=== PATIENT | female | born 1995 | race Caucasian/White ===

== ENCOUNTER 2019-10-04 06:10 | Day surgery (SDC) | payer MEDICAID ==
[~2019-10-04] VITALS: Ht 157.5 cm; Wt 74.4 kg
[2019-10-04] VITALS (11 sets, daily range): BP systolic 115–143; BP diastolic 70–88
[~2019-10-04 06:10] MED LIST: LACTATED RINGERS 1,000 ML ONE
[2019-10-04] MEDS ORDERED: LACTATED RINGERS 1,000 ML ONE (06:35)
[2019-10-04] MEDS ORDERED: DECADRON ONE (06:36)
[2019-10-04] MEDS ORDERED: LIDOCAINE 2% VIAL ONE (06:36)
[2019-10-04] MEDS ORDERED: SUBLIMAZE ONE ×2 (06:36→10:09)
[2019-10-04] MEDS ORDERED: TORADOL ONE (06:36)
[2019-10-04] MEDS ORDERED: ZOFRAN 4 MG/2 ML VIAL ONE ×2 (06:36→10:09)
[2019-10-04] MEDS ORDERED: DIPRIVAN IV ONE (06:36)
[2019-10-04] MEDS ORDERED: VERSED ONE (06:37)
[2019-10-04 06:43] LABS: BASOPHIL % 0.4 % (0.0-0.2); EOSINOPHIL # 0.1 10^3/uL (0.0-0.2); EOSINOPHIL % 0.7 % (0.0-5.0); LYMPHOCYTES # 2.8 10^3/uL (1.0-4.8); LYMPHOCYTES % 32.3 % (24.0-44.0); MEAN CORP HGB 28.9 pg (26-34); MONOCYTES # 0.7 10^3/uL (0.3-0.8); MONOCYTES % 7.9 % (5.0-12.0); NEUTROPHILS % 58.6 % (41.0-85.0); RED CELL DISTRIBUTION WIDTH 12.9 % (11.5-14.5)
[2019-10-04] MEDS: LACTATED RINGERS 1,000 ML IV SCH ×2 (06:45→10:15)
[2019-10-04] MEDS ORDERED: SODIUM CHLORIDE IR ONE (07:05)
[2019-10-04] MEDS ORDERED: METHERGINE ONE (08:59)
--- NOTE | 2019-10-04 09:55 | OPH ---
DATE OF SURGERY: 10/04/2019 PREOPERATIVE DIAGNOSIS: Missed . POSTOPERATIVE DIAGNOSIS: Missed . PROCEDURE: Suction dilation and curettage. SURGEON: Sabine Chavez DO. DYE TUB TENDER: Mary Ellen. ANESTHESIA: General. SPECIMENS: Products of conception. URINE: Straight cath before. ESTIMATED BLOOD LOSS: 1000 mL. FINDINGS: Friable placental tissue, internal cervical laceration that occurred during placement of the curettage with 2 cervical sutures placed for hemostasis. PROCEDURE IN DETAIL: The patient was brought to the operating room where anesthesia was found to be adequate. She was then prepped and draped in normal sterile fashion and placed in the supine lithotomy position. Timeout was performed. We then proceeded to place a weighted speculum in the vaginal vault. The anterior lip of the cervix was grasped with a single tooth tenaculum. The cervix was gently dilated to accommodate first the #7 curved curettage. As inserting the curettage, there was a slight bump and a mass on the left portion of the uterus entering into the cavity. I did not feel that the 7 curettage was removing enough tissue. Therefore, I dilated the cervical os to accommodate the #10 curettage. Once #10 curettage was placed, copious amounts of products of conception were removed. This proved to be a more adequate. Upon removing the curette, the cervix was bleeding internally at the 10-11 o'clock position. Every time I removed the curettage, bleeding was noted. In between removal and looking at the specimen, the area was grasped with the ring forceps, which caused hemostasis. During the procedure, the suction container was full. Therefore, we had to remove the full of specimen. Therefore, the suction container had to be emptied. During this time, hemostasis was noted with the ring forceps. On the internal lip of the cervix, the placenta tissue was inspected. It was noted to be a fairly large amount and friable. Once the container was changed, I then turned our attention back to the procedure where the gentle sharp curettage was done and noted products in the right fundal region. Therefore, the suction curette was run through several more times with the 7 and the 10. I did another gentle curettage and noted a slight cry and only blood clots returned and no products of conception. Therefore, I deemed this portion of the procedure to be complete, but during this process, the uterus was slightly boggy; therefore, I chose to give Methergine IM and asked for Cytotec to be placed on the table for a postop placement. The uterus was massaged and started to become firm. Once this was noted, I did a last pass with suction and minimal bleeding was obtained. So, then I placed an Allis clamp at the site of bleeding and then tied 2 [id number] sutures at the area of bleeding on the anterior lip of the cervix. Hemostasis was noted. We paused for a moment to allow time for this to see if more bleeding would occur. Bleeding did not restart and therefore, all instruments were removed from the vaginal vault. I then placed 800 mcg of Cytotec rectally. The patient tolerated the procedure well. She was taken to the recovery room in stable condition. Now, the patient will be sent home with Methergine p.o. DISPOSITION: The patient is stable to PACU. Sabine Chavez DO DR: PHUC/elizabeth JOB# [id number]
[2019-10-04] MEDS ORDERED: SUBLIMAZE IV PRN (10:00)
[2019-10-04] MEDS ORDERED: LACTATED RINGERS 2,000 ML ONE (10:12)
[2019-10-04] MEDS ORDERED: ZOFRAN 4 MG/2 ML VIAL IV ONE (10:30)
[2019-10-04] MEDS ORDERED: [UNRECOGNIZED DRUG - CODE] PO (11:13)
== END 2019-10-04 11:29 | disposition home or self-care (01) ==
LOC: SDC 06:10
PROVIDERS: ATTEND Obstetrics & Gynecology
DX: O02.1 Missed abortion (principal); Z3A.08 8 weeks gestation of pregnancy
CPT/HCPCS: 36415; 59820; 85025; 86900; 88305; A4217; J1100; J1885; J2001; J2210; J2250; J2405 ×2; J3010 ×2; J3490; J7120 ×3

== ENCOUNTER → 2020-05-20 | Outpatient (CLI) | payer MEDICAID ==
[~2020-05-20] MED LIST changes: -LACTATED RINGERS 1,000 ML ONE; +[UNRECOGNIZED DRUG - CODE] PO
== END | disposition home or self-care (01) ==
LOC: LAB 16:56
PROVIDERS: ATTEND Obstetrics & Gynecology
DX: Z34.02 Encounter for supervision of normal first pregnancy, second trimester (principal)
CPT/HCPCS: 36415; 82105

== ENCOUNTER → 2020-06-16 | Outpatient (CLI) | payer MEDICAID ==
--- NOTE | 2020-06-16 15:17 | DIREP ---
PROCEDURE:US OB 2 3TRI DETAILED TRANSABD COMPARISON:None. INDICATIONS:SECOND TRIMESTER TECHNIQUE:Transabdominal sonography of the gravid uterus was performed. FINDINGS: NUMBER: Single. POSITION: Breech. AMNIOTIC FLUID VOLUME: LVP: 4.4 cm, normal is 2-8 cm. PLACENTAL LOCATION: Posterior. Low-lying. No previa. There is a focal myometrial contraction at the developing lower uterine segment on the initial images of the cervix. CERVICAL LENGTH: Unremarkable transabdominal assessment. HEART RATE: 142 bpm BIPARIETAL DIAMETER: 4.8 cm, (20 weeks, 3 days),52.4 percentile. HEAD CIRCUMFERENCE: 18.2 cm,(20 weeks, 4 days),50 percentile. ABD CIRCUMFERENCE: 17.4 cm,(22 weeks, 2 days),93.2 percentile. FEMUR LENGTH:3.5 cm, 21 weeks, 0 days), 64.1 percentile. EFW: 432.2 g,(95 percentile). ANATOMY: CEREBELLUM: 2.0 cm NUCHAL FOLD: 4.7 mm CISTERNA MAGNA: 5.0 mm LATERAL VENTRICLES: 5.8 mm CHOROID PLEXUS: Normal. MIDLINE FALX: Normal. CAVUM SEPTUM PELLUCIDUM: Normal. 4 CHAMBER VIEW OF HEART:Abnormal. Possible small VSD. UPPER LIP: Normal. STOMACH: Normal. KIDNEYS: Normal. BLADDER: Normal. CORD INSERTION: Normal. CORD VESSEL NUMBER: Normal. SPINE: Normal. EXTREMITIES: Present. OTHER: Anatomy seen suboptimally above is related to patient habitus and/or the position of the fetus. ULTRASOUND AGE: 21 weeks, 1 days ULTRASOUND RJ: October 26, 2020 CLINICAL AGE: 20 weeks, 3 days. CLINICAL RJ: October 31, 2020 CONCLUSION: 1. Single live intrauterine . 2. Possible small VSD on four-chamber views of the heart. Consider echocardiography. Otherwise, no abnormality demonstrated. 3. Posterior placenta, low lying. No previa. Recommend follow-up in the 3rd trimester to ensure resolution. Dictated by: JEREMIAS Physician on 06/16/2020 at 11:37 AM bs
== END | disposition home or self-care (01) ==
LOC: RAD 09:58
PROVIDERS: ATTEND Obstetrics & Gynecology
DX: O32.1XX0 Maternal care for breech presentation, not applicable or unspecified (principal); Z3A.21 21 weeks gestation of pregnancy
CPT/HCPCS: 76805

== ENCOUNTER → 2020-09-07 | Outpatient (CLI) | payer MEDICAID ==
--- NOTE | 2020-09-07 16:16 | DIREP ---
PROCEDURE:US BIOPHYSICAL PROFILE W/O NON STRESS COMPARISON:[facility], US, US OB 2 3TRI DETAILED TRANSABD, 06/16/2020, 10:15 AM. INDICATIONS:LOW LYING PLACENTA FINDINGS: Breathing:Normal, 2. Movement:Normal, 2. Tone:Normal, 2. Fluid:Normal, 2. Total: 8 , 8 Number:Restrepo. Position:Cephalic. Placenta:Posterior. No previa. No longer low-lying. Amniotic Fluid Volume:Largest vertical pocket: 5.8 cm, (normal is 2-8 cm). Cervix:Normal transabdominal assessment. Transvaginal images were obtained for confirmation that the low-lying placenta resolved. Apposed cervical length incidentally noted to be 3 cm. Heart Rate:145 bpm. Biparietal Diameter:8.0 cm,(32 weeks, 0 days),32.0 percentile. Head Circumference:30.0 cm,(33 weeks, 2 days),36.8 percentile. Abdominal Circumference:29.8 cm,(33 weeks, 6 days),87.7 percentile. Femur Length:6.3 cm,(32 weeks, 4 days),46.4 percentile. Estimated Weight:2149 g,(70.1 percentile). Ultrasound GA: 33 weeks, 0 days Ultrasound RJ: October 26, 2020 Clinical GA: 32 weeks, 2 days Clinical RJ: October 31, 2020 anatomic survey was not performed. No abnormalities are seen. CONCLUSION: 1. Single live intrauterine with appropriate interval growth. 2. BPP 05/16. Dictated by: JREEMIAS Physician on 09/07/2020 at 03:40 PM ac
== END | disposition home or self-care (01) ==
LOC: RAD 13:04
PROVIDERS: ATTEND Obstetrics & Gynecology
DX: O44.40 Low lying placenta NOS or without hemorrhage, unspecified trimester (principal); Z3A.33 33 weeks gestation of pregnancy
CPT/HCPCS: 76816; 76819

== ENCOUNTER 2020-10-18 14:45 | Observation (INO) | payer MEDICAID ==
[~2020-10-18] VITALS: Ht 157.5 cm; Wt 95.3 kg
[2020-10-18 15:59] LABS: APPEARANCE,URINE SLIGHTLY CLOUDY (CLEAR); UA COLOR YELLOW (YELLOW)
[2020-10-18 16:00] LABS: BILIRUBIN,URINE NEGATIVE (NEGATIVE); UROBILINOGEN,URINE NEGATIVE (NEGATIVE)
[2020-10-18 16:35] VITALS: BP 111/73
== END 2020-10-18 17:00 | disposition home or self-care (01) ==
LOC: ATP 14:45
PROVIDERS: ADMIT Obstetrics & Gynecology; ATTEND Obstetrics & Gynecology
DX: O26.893 Other specified pregnancy related conditions, third trimester (principal); R10.31 Right lower quadrant pain; O12.03 Gestational edema, third trimester; Z3A.38 38 weeks gestation of pregnancy; Z79.899 Other long term (current) drug therapy
CPT/HCPCS: 59025; 80307; 81000; 87086; G0378 ×2

== ENCOUNTER 2020-10-30 21:51 | Observation (INO) | payer MEDICAID ==
[~2020-10-30] VITALS: Ht 157.5 cm; Wt 95.3 kg
[2020-10-30 23:42] LABS: APPEARANCE,URINE HAZY (CLEAR); BILIRUBIN,URINE NEGATIVE (NEGATIVE); UA COLOR YELLOW (YELLOW); UROBILINOGEN,URINE 0.2 (NEGATIVE)
[2020-10-31] MEDS ORDERED: LACTATED RINGERS 2,000 ML ONE (00:05)
[2020-10-31] MEDS ORDERED: LACTATED RINGERS 1,000 ML IV ONE (00:30)
[2020-10-31] MEDS ORDERED: PHENERGAN IV ONE (00:30)
[2020-10-31] MEDS ORDERED: DEMEROL IV ONE (00:30)
[2020-10-31] MEDS ORDERED: DEMEROL ONE (00:50)
[2020-10-31] MEDS ORDERED: PHENERGAN ONE (00:53)
[2020-10-31] MEDS ORDERED: NS 25ML 25 ML IV ONE (00:54)
[2020-10-31] MEDS ORDERED: PNV1TABL82 PO (08:22)
[2020-11-01] MEDS ORDERED: IBUP-1131 PO (11:48)
== END 2020-10-31 04:30 | disposition home or self-care (01) ==
LOC: ATP 22:50
PROVIDERS: ADMIT Obstetrics & Gynecology; ATTEND Obstetrics & Gynecology
DX: O62.9 Abnormality of forces of labor, unspecified (principal); O26.893 Other specified pregnancy related conditions, third trimester; R11.0 Nausea; O34.63 Maternal care for abnormality of vagina, third trimester; N89.8 Other specified noninflammatory disorders of vagina; O12.03 Gestational edema, third trimester; Z3A.40 40 weeks gestation of pregnancy; Z79.899 Other long term (current) drug therapy
CPT/HCPCS: 81000; 87086; 96374; 96375; G0378 ×5; J2175; J2550; J7120 ×2

== ENCOUNTER 2020-10-31 07:31 | Inpatient (IN) | payer MEDICAID ==
[~2020-10-31] VITALS: Ht 157.5 cm; Wt 94.3 kg
[2020-10-31] MEDS: ANCEF 1 GM in NS 100ML 100 ML IV SCH (00:45)
[2020-10-31] MEDS ORDERED: PNV1TABL82 PO (08:22)
[2020-10-31] MEDS ORDERED: WATER ONE ×2 (08:34→20:00)
[2020-10-31] MEDS ORDERED: LACTATED RINGERS 2,000 ML ONE (08:34)
[2020-10-31] MEDS ORDERED: OXYTOCIN 30 UNIT/NS 500 ML 500 ML IV ONE (08:35)
[2020-10-31] MEDS ORDERED: LIDOCAINE 1% VIAL ONE ×2 (08:36→13:59)
[2020-10-31] MEDS ORDERED: DEMEROL IV PRN (09:00)
[2020-10-31] MEDS ORDERED: ZOFRAN IV PRN (09:00)
[2020-10-31] MEDS ORDERED: PHENERGAN IV PRN (09:00)
[2020-10-31] MEDS ORDERED: LIDOCAINE 1% VIAL MC PRN (09:00)
[2020-10-31] MEDS ORDERED: OXYTOCIN 30 UNIT/NS 500 ML 500 ML IV SCH ×2 (09:00→23:30)
[2020-10-31] MEDS: LACTATED RINGERS 1,000 ML IV SCH ×4 (09:03→21:03)
[2020-10-31 11:01] LABS: BASOPHIL % 0.1 % (0.0-0.2); EOSINOPHIL % 0.1 % (0.0-5.0); LYMPHOCYTES % 7.6 % (24.0-44.0); MEAN CORP HGB 29.8 pg (26-34); MONOCYTES # 1.5 10^3/uL (0.3-0.8); MONOCYTES % 9.4 % (5.0-12.0); NEUTROPHILS % 82.5 % (41.0-85.0); PLATELET COUNT 103 10^3/uL (150-400); RED CELL DISTRIBUTION WIDTH 13.3 % (11.5-14.5)
[2020-10-31] MEDS ORDERED: NS 25ML 25 ML IV ONE (11:22)
[2020-10-31] MEDS ORDERED: PHENERGAN ONE (11:22)
[2020-10-31] MEDS ORDERED: DEMEROL ONE (11:22)
[2020-10-31] MEDS ORDERED: NAROPIN ONE (13:39)
--- NOTE | 2020-10-31 14:05 | NUR ---
Anesthesia consulted to pt bedside for request of labor epidural. Pt interview, assessment, and consent obtained prior to procedure- witnessed by assigned Obstetric RN. Pt verbalized understanding. Pt positioned self in sitting position, with protective head covering. Skin prepped with chlorohexidine swabs and sterile gloves - allowed to dry prior to placement of sterile drape. 1% lidocaine PF used for skin at L2-L3 interspace. Tuohy 17 gauge used with NS PF for MADAN. Pt able to maintain position appropriately, no distress at this time. MADAN at 8 cm, 25 gauge spinal needle used for CSE technique- free flow , heme negative CSF observed; 1 ml of PF 0.25% bupivicaine given via spinal needle. Spinal needle removed and catheter threads with ease, Tuohy removed without complication or catheter displacement. Catheter marking of 13 at pt skin. sterile clear dressing and sterile sponge used to anchor catheter. catheter secured to skin , with Medipore tape, routed towards Left shoulder. Pt repositioned self supine. Vital signs and FHT consistent with baseline , no acute distress noted. Pt educated on use of ROBOTICS TECHNICIAN button, lock out feature, and sensory block. Pt verbalizes understanding. Dermatone block level at T10. Thank you, Dr. Zuhair Chopra, DNP, PHARMACY TECHNICIAN PER DIEM
--- NOTE | 2020-10-31 15:53 | PRM.PN ---
Progress Note Subjective Date: Oct 31, 2020 Time: 15:48 Physician Notes: Pt comfortable with epidural. She and sleeping. Awoke pt and she complained of being cold and shivering. I got patients warm blankets. FHT-Cat 2, TOCO every 1-3 min. SVE per nursing 7 cm -Continue expectant management and will start pushing when pt is complete. Objective Review IO, Exams,& Results Laboratory Tests Test 10/31/20 08:10 10/31/20 09:00 Amniotic Fld Alpha Fetoprotein RUPTURE White Blood Count 15.7 10^3/uL Red Blood Count 3.93 10^6/uL Hemoglobin 11.7 g/dL Hematocrit 34.0 % Mean Corpuscular Volume 86.5 fL Mean Corpuscular Hemoglobin 29.8 pg Mean Corpuscular Hemoglobin Concent 34.4 g/dL Red Cell Distribution Width 13.3 % Platelet Count 103 10^3/uL Mean Platelet Volume 11.3 fL Neutrophils (%) (Auto) 82.5 % Lymphocytes (%) (Auto) 7.6 % Monocytes (%) (Auto) 9.4 % Neutrophils # (Auto) 13.0 10^3/uL Lymphocytes # (Auto) 1.20 10^3/uL1 Monocytes # (Auto) 1.5 10^3/uL Absolute Immature Granulocyte (auto 0.04 10^3 u/L Absolute Eosinophils (auto) 0.0 10^3/uL Immature Granulocytes % 0.30 % Eosinophils % 0.1 % Basophils % 0.1 % Basophils # 0.0 10^3/uL HIV-1 Antibody NON-REACTIVE HIV-2 Antibody NON-REACTIVE Current Medications Medications (Trade) Dose Ordered Sig/Franky PRN Reason Start Time Stop Time Status Last Admin Lidocaine HCl (Lidocaine 1% Vial) 20 mg PRN PRN PAIN 4 - 6 10/31/20 09:00 11/01/20 08:59 Meperidine HCl (Demerol) 50 mg Q4H PRN PAIN 7 - 10 10/31/20 09:00 11/30/20 08:59 10/31/20 11:25 Ondansetron HCl (Zofran) 4 mg Q6 PRN INDIGESTION 10/31/20 09:00 11/30/20 08:59 10/31/20 09:18 Promethazine HCl (Phenergan) 25 mg Q4H PRN INDIGESTION 10/31/20 09:00 11/30/20 08:59 10/31/20 11:24 Orders - LOUISA MARION DO Admit Orders (10/31/20 08:04) External Monitoring >24w (10/31/20 08:05) Call Md/Non-Reasurring Fht Pat (10/31/20 08:05) Call Md/Abnorm Vag Bld (10/31/20 08:05) Call Md For Imminent Delivery (10/31/20 08:05) Npo Except Ice Chips/Popsicles (10/31/20 08:36) Vs Q15min While In Labor (10/31/20 08:36) Temp Q1hr If Ruptured Membrane (10/31/20 08:36) Hbsag (Surf Antigen) (10/31/20 08:36) Ringer's Solution,Lactated (Lactated Rin (10/31/20 09:00) Lidocaine Hcl (Lidocaine 1% Vial) (10/31/20 09:00) Continuous Monitoring (10/31/20 08:36) RPR (10/31/20 08:36) Meperidine Hcl/Pf (Demerol) (10/31/20 09:00) Ondansetron Hcl/Pf (Zofran) (10/31/20 09:00) Promethazine Hcl (Phenergan) (10/31/20 09:00) Oxytocin/0.9 % Sodium Chloride (Oxytocin (10/31/20 09:00) LOUISA MARION DO Oct 31, 2020 15:53
--- NOTE | 2020-10-31 15:59 | PCM.HP ---
OB-Chief Complaint and HPI Date/Diagnosis Date: Oct 31, 2020 Time: 15:53 Admit Dx: (1) Spontaneous rupture of amniotic membranes SNOMED: 264507243 (2) 40 weeks gestation of ICD Codes: Z3A.40 - 40 weeks gestation of SNOMED: 77825366 (3) Morbid obesity due to excess calories ICD Codes: E66.01 - Morbid (severe) obesity due to excess calories SNOMED: 146856555, 746691864 (4) Excessive weight gain during , antepartum ICD Codes: O26.00 - Excessive weight gain in , unspecified trimester SNOMED: 079991855 (5) Uterine contractions SNOMED: 632519464 Chief Complaint/History(PI) : 2 Para: 1 EDC: Oct 31, 2020 Reason for admission: rupture of membranes Past Family/Social History Patient History: No known health problems 32 MOTHER G8 BROTHER G8 SISTER Unknown 33 FATHER No Family History of: Alzheimer's disease Asthma Cerebrovascular disorder Chronic obstructive pulmonary disease Congestive heart failure Diabetes insipidus Diabetes mellitus Hypertension Parkinson's disease Blood Type: A+ Rubella: immune RPR/VDRL: Negative GBS Status: Negative HBsAG: Negative Provider Note: Pt is a 25 y/o @ 40.0 weeks who presented to L&D with complaints of SROM. Pt was sent home earlier in the morning as she was present in triage to r/o labor. She was 2 cm and did not progress. Once patient returned to home her water broke around 6:30 am. clear fluid. Pt returned to hospital and SROM was confirmed. She was 3 cm upon admission, Pt is complicated with excessive weight gain and obesity. A/ 25 y/o @ 40.0 SROM Excessive weight gain GBS neg Leukocytosis P/ Expectant management Pain meds prn OB EXAM Physical Exam Vital Signs: Weight: 208 LABS Laboratory Tests Test 10/31/20 09:00 HIV-1 Antibody NON-REACTIVE (NONREACTIVE) HIV-2 Antibody NON-REACTIVE (NONREACTIVE) LOUISA MARION DO Oct 31, 2020 15:59
[2020-10-31] MEDS ORDERED: LACTATED RINGERS 1,000 ML ONE ×2 (16:05→20:17)
[2020-10-31] MEDS ORDERED: TYLENOL PO ONE (18:19)
[2020-10-31] MEDS ORDERED: AMPICILLIN SODIUM ONE ×2 (18:20→19:21)
[2020-10-31] MEDS ORDERED: NS 100ML 100 ML IV ONE ×2 (18:20→19:20)
[2020-10-31] MEDS ORDERED: TYLENOL PO STA (18:22)
[2020-10-31] MEDS ORDERED: ANCEF 2 GM/D5W 50ML IV SCH (18:30)
[2020-10-31] MEDS ORDERED: ANCEF 2 GM/D5W 50ML IV ONE (19:00)
[2020-10-31] MEDS ORDERED: NS IV SCH (19:30)
[2020-10-31] MEDS ORDERED: GENTAMICIN SULFATE IV SCH (19:30)
[2020-10-31] MEDS: AMPICILLIN IV SCH (19:45)
[2020-10-31] MEDS ORDERED: MOTRIN ONE (20:16)
[2020-10-31] MEDS ORDERED: MOTRIN PO ONE (20:30)
--- NOTE | 2020-10-31 23:24 | PCM.OBDEL1 ---
OPERATIVE REPORT OPERATIVE REPORT 40.0- over an intact perineum with epidural anesthesia. Viable female infant Apgars 8/9. Weight 8 pounds 15 ounces. was delivered in OA position. Infant was delivered and handed to mother. Upon delivery thick meconium was noted. Cry was noted after stimulation on mother's chest.Delayed cord clamp and cut. First-degree vaginal laceration repaired with 3-0 chromic and bilateral labial lacerations repaired with 4-0 Monocryl. Hemostasis noted. Placenta was spontaneously expelled. Cervix was inspected and noted to be intact. Bladder emptied with red rubber catheter and approximately 25 cc emptied. QBL equals 500 mL. Mother and stable. Name = Loretta Mother had an intrapartum infection. She was treated with ampicillin and gentamicin. LOUISA MARION DO Oct 31, 2020 23:24
[2020-10-31] MEDS ORDERED: MYLANTA PO PRN (23:30)
[2020-10-31] MEDS ORDERED: TYLENOL PO PRN (23:30)
[2020-10-31] MEDS ORDERED: NORCO 5MG PO PRN ×2 (23:30)
[2020-10-31] MEDS ORDERED: TYLENOL #3 PO PRN (23:30)
[2020-10-31] MEDS ORDERED: DERMOPLAST SPRAY TP PRN (23:30)
[2020-10-31] MEDS ORDERED: LANOLIN HYDROUS TP PRN (23:30)
[2020-10-31] MEDS ORDERED: TUCKS TP PRN (23:30)
[2020-11-01] MEDS ORDERED: NS 100ML 200 ML IV ONE (00:37)
[2020-11-01] MEDS ORDERED: ANCEF ONE ×3 (00:37→12:47)
[2020-11-01] MEDS ORDERED: AMPICILLIN SODIUM ONE ×2 (00:38→08:45)
[2020-11-01] MEDS: ANCEF 1 GM in NS 100ML 100 ML IV SCH ×5 (00:45→18:14)
[2020-11-01] MEDS ORDERED: TUCKS ONE (00:48)
[2020-11-01] MEDS ORDERED: DERMOPLAST SPRAY TP ONE (00:48)
[2020-11-01] MEDS: AMPICILLIN IV SCH ×2 (02:05→08:56)
[2020-11-01] MEDS ORDERED: GLUCOSE GEL PO ONE (02:37)
[2020-11-01] MEDS ORDERED: NS 100ML 100 ML IV ONE ×3 (06:17→12:47)
[2020-11-01 06:43] LABS: BASOPHIL % 0.2 % (0.0-0.2); LYMPHOCYTES # 1.41 10^3/uL1 (1.0-4.8); LYMPHOCYTES % 7.1 % (24.0-44.0); MEAN CORP HGB 31.1 pg (26-34); MONOCYTES # 1.8 10^3/uL (0.3-0.8); MONOCYTES % 9.2 % (5.0-12.0); NEUTROPHIL # 16.4 10^3/uL (1.8-7.7); NEUTROPHILS % 82.8 % (41.0-85.0); PLATELET COUNT 119 10^3/uL (150-400); RED CELL DISTRIBUTION WIDTH 13.7 % (11.5-14.5)
[2020-11-01] MEDS ORDERED: MOTRIN ONE (08:58)
[2020-11-01] MEDS: MOTRIN PO PRN (08:59)
--- NOTE | 2020-11-01 10:28 | PRM.PN ---
Progress Note Subjective Date: Nov 01, 2020 Time: 10:25 Physician Notes: PPD # 1 Patient is doing well today. Sitting up in bed. in room. Complains of appropriate perineal pain. Pain well controlled with pericare and oral pain meds. Ambulating and urinating without difficulty. Tolerated a regular diet. Denies current complaints. Discussed that we will continue to do antibiotics for a minimum of 24 hours p ostpartum. Antibiotics will be continued if patient becomes symptomatic or febrile. Otherwise, plan will be to stop antibiotics and plan for D/C to home tomorrow. VS-98.1,77,96%,20,93/55 ABD-Obese, Firm fundus, appropriate tenderness. EX-Trace edema, Full ROM, NT, Neg Katarina's A/ 25 y/o @ 40.0 s/p Intrapartum infection Excessive weight gain GBS neg Leukocytosis Bottle feeding P/ Continue PP care Increase ambulation Continue abx for a minimum 24 hrs post delivery, pending no additional temps AM. CBC Plan for d/c to home tomorrow Objective Review IO, Exams,& Results Laboratory Tests Test 10/31/20 08:10 10/31/20 09:00 11/01/20 05:48 Amniotic Fld Alpha Fetoprotein RUPTURE White Blood Count 15.7 10^3/uL 19.8 10^3/uL Red Blood Count 3.93 10^6/uL 3.02 10^6/uL Hemoglobin 11.7 g/dL 9.4 g/dL Hematocrit 34.0 % 26.3 % Mean Corpuscular Volume 86.5 fL 87.1 fL Mean Corpuscular Hemoglobin 29.8 pg 31.1 pg Mean Corpuscular Hemoglobin Concent 34.4 g/dL 35.7 g/dL Red Cell Distribution Width 13.3 % 13.7 % Platelet Count 103 10^3/uL 119 10^3/uL Mean Platelet Volume 11.3 fL 11.2 fL Neutrophils (%) (Auto) 82.5 % 82.8 % Lymphocytes (%) (Auto) 7.6 % 7.1 % Monocytes (%) (Auto) 9.4 % 9.2 % Neutrophils # (Auto) 13.0 10^3/uL 16.4 10^3/uL Lymphocytes # (Auto) 1.20 10^3/uL1 1.41 10^3/uL1 Monocytes # (Auto) 1.5 10^3/uL 1.8 10^3/uL Absolute Immature Granulocyte (auto 0.04 10^3 u/L 0.13 10^3 u/L Absolute Eosinophils (auto) 0.0 10^3/uL 0.0 10^3/uL Immature Granulocytes % 0.30 % 0.70 % Eosinophils % 0.1 % 0.0 % Basophils % 0.1 % 0.2 % Basophils # 0.0 10^3/uL 0.0 10^3/uL Rapid Plasma Reagin NONREACTIVE HIV-1 Antibody NON-REACTIVE HIV-2 Antibody NON-REACTIVE Current Medications Medications (Trade) Dose Ordered Sig/Franky PRN Reason Start Time Stop Time Status Last Admin Acetaminophen (Tylenol) 650 mg Q4HR PRN PAIN 1 - 3 10/31/20 23:30 11/30/20 23:29 Acetaminophen/ Codeine Phosphate (Tylenol #3) 1 each Q4H PRN PAIN 4 - 6 10/31/20 23:30 11/30/20 23:29 Acetaminophen/ Hydrocodone Bitart ([place] 5mg) 1 ea Q4HR PRN PAIN 4 - 6 10/31/20 23:30 11/30/20 23:29 Acetaminophen/ Hydrocodone Bitart ([place] 5mg) 2 ea Q4HR PRN PAIN 7 - 10 10/31/20 23:30 11/30/20 23:29 Ampicillin Sodium (Ampicillin) 2 mg Q6 11/01/20 00:00 12/01/20 00:00 11/01/20 08:56 Benzocaine (Dermoplast [place]) To perineum PRN sut... PRN PRN Perineal Pain 10/31/20 23:30 11/30/20 23:29 Cefazolin Sodium 1 gm/Sodium Chloride 100 ml @ 100 mls/hr Q6 10/31/20 19:30 11/30/20 19:29 11/01/20 06:30 Cefazolin Sodium/ Dextrose (Ancef 2 Gm/D5W 50ml) 2 gm OT 10/31/20 18:30 11/30/20 18:29 10/31/20 18:38 Docusate Sodium (Colace) 100 mg HS 11/01/20 21:00 12/01/20 20:59 Gentamicin Sulfate 470 mg/ Sodium Chloride 111.75 ml @ 100 mls/ hr Q24HRS 10/31/20 19:30 11/30/20 19:29 10/31/20 20:30 Ibuprofen (Motrin) 800 mg Q6HR PRN CRAMPING 10/31/20 23:30 11/30/20 23:29 11/01/20 08:59 Lanolin (Lanolin Hydrous) Apply to nipples PRN dry, pain... TID PRN pain/cracking 10/31/20 23:30 11/30/20 23:29 Meperidine HCl (Demerol) 50 mg Q4H PRN PAIN 7 - 10 10/31/20 09:00 11/30/20 08:59 10/31/20 11:25 Ondansetron HCl (Zofran) 4 mg Q6 PRN INDIGESTION 10/31/20 09:00 11/30/20 08:59 10/31/20 09:18 Promethazine HCl (Phenergan) 25 mg Q4H PRN INDIGESTION 10/31/20 09:00 11/30/20 08:59 10/31/20 11:24 Witch Viviane (Tucks) To perineal area ... PRN PRN Hemorrhoids 10/31/20 23:30 11/30/20 23:29 Orders - LOUISA MARION DO Admit Orders (10/31/20 08:04) External Monitoring >24w (10/31/20 08:05) Call Md/Non-Reasurring Fht Pat (10/31/20 08:05) Call Md/Abnorm Vag Bld (10/31/20 08:05) Call Md For Imminent Delivery (10/31/20 08:05) Npo Except Ice Chips/Popsicles (10/31/20 08:36) Vs Q15min While In Labor (10/31/20 08:36) Temp Q1hr If Ruptured Membrane (10/31/20 08:36) Hbsag (Surf Antigen) (10/31/20 08:36) Ringer's Solution,Lactated (Lactated Rin (10/31/20 09:00) Continuous Monitoring (10/31/20 08:36) Meperidine Hcl/Pf (Demerol) (10/31/20 09:00) Ondansetron Hcl/Pf (Zofran) (10/31/20 09:00) Promethazine Hcl (Phenergan) (10/31/20 09:00) Oxytocin/0.9 % Sodium Chloride (Oxytocin (10/31/20 09:00) Cefazolin Sodium/Dextrose,Iso (Ancef 2 G (10/31/20 18:30) Gentamicin Sulfate (Gentamicin Sulfate) (10/31/20 19:30) Ampicillin Sodium (Ampicillin) (11/01/20 00:00) Cefazolin Sodium (Ancef) (10/31/20 19:30) Routine Vital Signs (10/31/20 23:24) Activity Advance As Tolerated (10/31/20:24) Ice Pk To Episiotomy/Tear (10/31/20 23:24) Sitz Bath Prn (10/31/20:24) Docusate Sodium (Colace) (11/01/20 21:00) Lanolin (Lanolin Hydrous) (10/31/20 23:30) Ibuprofen (Motrin) (10/31/20 23:30) Acetaminophen (Tylenol) (10/31/20 23:30) Hydrocodone/Acetaminophen ([place] 5mg) (10/31/20 23:30) Hydrocodone/Acetaminophen ([place] 5mg) (10/31/20 23:30) Mag Hydrox/Aluminum Hyd/Simeth (Mylanta) (10/31/20 23:30) Benzocaine/Lanolin/Aloe Vera (Dermoplast (10/31/20 23:30) Witch Viviane (Tucks) (10/31/20 23:30) Regular Diet (11/01/20 Breakfast) Oxytocin/0.9 % Sodium Chloride (Oxytocin (10/31/20 23:30) Acetaminophen With Codeine (Tylenol #3) (10/31/20 23:30) LOUISA MARION DO Nov 01, 2020 10:28
--- NOTE | 2020-11-01 11:30 | NUR ---
[facility] CHARGE NURSE CHARLOTTE HOLGUIN RECEIVED TELEPHONE ORDER FROM DR VALENCIA TO MECHELLE CASEY DC PER ORDER.
[2020-11-01] MEDS ORDERED: NS IV SCH (11:32)
[2020-11-01] MEDS ORDERED: GENTAMICIN SULFATE IV SCH (11:32)
[2020-11-01] MEDS ORDERED: IBUP-1131 PO (11:48)
[2020-11-01] MEDS ORDERED: COLACE PO ONE (21:18)
[2020-11-01] MEDS: COLACE PO SCH (21:22)
[2020-11-02] MEDS: ANCEF 1 GM in NS 100ML 100 ML IV SCH ×2 (00:06→06:30)
[2020-11-02 05:23] LABS: BASOPHIL % 0.2 % (0.0-0.2); EOSINOPHIL # 0.2 10^3/uL (0.0-0.2); LYMPHOCYTES # 2.44 10^3/uL1 (1.0-4.8); LYMPHOCYTES % 13.8 % (24.0-44.0); MEAN CORP HGB 30.6 pg (26-34); MONOCYTES # 1.3 10^3/uL (0.3-0.8); MONOCYTES % 7.3 % (5.0-12.0); NEUTROPHIL # 13.7 10^3/uL (1.8-7.7); PLATELET COUNT 154 10^3/uL (150-400); RED CELL DISTRIBUTION WIDTH 13.7 % (11.5-14.5)
--- NOTE | 2020-11-02 09:03 | PRM.PN ---
Progress Note Subjective Date: Nov 02, 2020 Time: 08:58 Physician Notes: PPD # 2 Devendra is doing well today. Sitting up in bed. and daughter in room along with nursing staff. States she did well yesterday, just had a little bit of perineal discomfort. Pain is well controlled with Motrin. Ambulating and urinating without difficulty. Moderate lochia. Tolerating regular diet. She is bottle feeding. She has been afebrile since delivery. Questions answered. VS- 96%,78,107/61,98.4 ABD-firm fundus EX-Full ROM, NT A/ 25 y/o @ 40.0 s/p , PPD # 2 Intrapartum infection s/p 48 hr abx Excessive weight gain GBS neg Leukocytosis-improving Bottle feeding Anemia P/ Continue PP care Increase ambulation AM. CBC d/c to home tomorrow Iron & Motrin Rx 2 week office f/u Objective Review IO, Exams,& Results Intake and Output 11/02/20 07:00 Intake Total 373.50 ml Balance 373.50 ml IV Total 373.50 ml Laboratory Tests Test 10/31/20 09:00 11/01/20 05:48 11/02/20 05:04 White Blood Count 15.7 10^3/uL 19.8 10^3/uL 17.7 10^3/uL Red Blood Count 3.93 10^6/uL 3.02 10^6/uL 2.94 10^6/uL Hemoglobin 11.7 g/dL 9.4 g/dL 9.0 g/dL Hematocrit 34.0 % 26.3 % 25.7 % Mean Corpuscular Volume 86.5 fL 87.1 fL 87.4 fL Mean Corpuscular Hemoglobin 29.8 pg 31.1 pg 30.6 pg Mean Corpuscular Hemoglobin Concent 34.4 g/dL 35.7 g/dL 35.0 g/dL Red Cell Distribution Width 13.3 % 13.7 % 13.7 % Platelet Count 103 10^3/uL 119 10^3/uL 154 10^3/uL Mean Platelet Volume 11.3 fL 11.2 fL 10.6 fL Neutrophils (%) (Auto) 82.5 % 82.8 % 77.0 % Lymphocytes (%) (Auto) 7.6 % 7.1 % 13.8 % Monocytes (%) (Auto) 9.4 % 9.2 % 7.3 % Neutrophils # (Auto) 13.0 10^3/uL 16.4 10^3/uL 13.7 10^3/uL Lymphocytes # (Auto) 1.20 10^3/uL1 1.41 10^3/uL1 2.44 10^3/uL1 Monocytes # (Auto) 1.5 10^3/uL 1.8 10^3/uL 1.3 10^3/uL Absolute Immature Granulocyte (auto 0.04 10^3 u/L 0.13 10^3 u/L 0.12 10^3 u/L Absolute Eosinophils (auto) 0.0 10^3/uL 0.0 10^3/uL 0.2 10^3/uL Immature Granulocytes % 0.30 % 0.70 % 0.70 % Eosinophils % 0.1 % 0.0 % 1.0 % Basophils % 0.1 % 0.2 % 0.2 % Basophils # 0.0 10^3/uL 0.0 10^3/uL 0.0 10^3/uL Rapid Plasma Reagin NONREACTIVE HIV-1 Antibody NON-REACTIVE HIV-2 Antibody NON-REACTIVE Current Medications Medications (Trade) Dose Ordered Sig/Franky PRN Reason Start Time Stop Time Status Last Admin Acetaminophen (Tylenol) 650 mg Q4HR PRN PAIN 1 - 3 10/31/20 23:30 11/30/20 23:29 Acetaminophen/ Codeine Phosphate (Tylenol #3) 1 each Q4H PRN PAIN 4 - 6 10/31/20 23:30 11/30/20 23:29 Acetaminophen/ Hydrocodone Bitart ([place] 5mg) 1 ea Q4HR PRN PAIN 4 - 6 10/31/20 23:30 11/30/20 23:29 Acetaminophen/ Hydrocodone Bitart ([place] 5mg) 2 ea Q4HR PRN PAIN 7 - 10 10/31/20 23:30 11/30/20 23:29 Benzocaine (Dermoplast [place]) To perineum PRN sut... PRN PRN Perineal Pain 10/31/20 23:30 11/30/20 23:29 Cefazolin Sodium 1 gm/Sodium Chloride 100 ml @ 100 mls/hr Q6 10/31/20 19:30 11/30/20 19:29 11/02/20 06:30 Cefazolin Sodium/ Dextrose (Ancef 2 Gm/D5W 50ml) 2 gm OT 10/31/20 18:30 11/30/20 18:29 10/31/20 18:38 Docusate Sodium (Colace) 100 mg HS 11/01/20 21:00 12/01/20 20:59 11/01/20 21:22 Gentamicin Sulfate 470 mg/ Sodium Chloride 261.75 ml @ 234.228 mls/hr Q24HRS 11/01/20 11:32 11/30/20 19:29 11/01/20 20:27 Ibuprofen (Motrin) 800 mg Q6HR PRN CRAMPING 10/31/20 23:30 11/30/20 23:29 11/01/20 08:59 Lanolin (Lanolin Hydrous) Apply to nipples PRN dry, pain... TID PRN pain/cracking 10/31/20 23:30 11/30/20 23:29 Meperidine HCl (Demerol) 50 mg Q4H PRN PAIN 7 - 10 10/31/20 09:00 11/30/20 08:59 10/31/20 11:25 Ondansetron HCl (Zofran) 4 mg Q6 PRN INDIGESTION 10/31/20 09:00 11/30/20 08:59 10/31/20 09:18 Promethazine HCl (Phenergan) 25 mg Q4H PRN INDIGESTION 10/31/20 09:00 11/30/20 08:59 10/31/20 11:24 Witch Viviane (Tucks) To perineal area ... PRN PRN Hemorrhoids 10/31/20 23:30 11/30/20 23:29 LOUISA Sifuentes DO Cefazolin Sodium/Dextrose,Iso (Ancef 2 G (10/31/20 18:30) Cefazolin Sodium (Ancef) (10/31/20 19:30) Routine Vital Signs (10/31/20 23:24) Activity Advance As Tolerated (10/31/20 23:24) Ice Pk To Episiotomy/Tear (10/31/20 23:24) Sitz Bath Prn (10/31/20 23:24) Docusate Sodium (Colace) (11/01/20 21:00) Lanolin (Lanolin Hydrous) (10/31/20 23:30) Ibuprofen (Motrin) (10/31/20 23:30) Acetaminophen (Tylenol) (10/31/20 23:30) Hydrocodone/Acetaminophen ([place] 5mg) (10/31/20 23:30) Hydrocodone/Acetaminophen ([place] 5mg) (10/31/20 23:30) Mag Hydrox/Aluminum Hyd/Simeth (Mylanta) (10/31/20 23:30) Benzocaine/Lanolin/Aloe Vera (Dermoplast (10/31/20 23:30) Witch Viviane (Tucks) (10/31/20 23:30) Regular Diet (11/01/20 Breakfast) Oxytocin/0.9 % Sodium Chloride (Oxytocin (10/31/20 23:30) Acetaminophen With Codeine (Tylenol #3) (10/31/20 23:30) Gentamicin Sulfate (Gentamicin Sulfate) (11/01/20 11:32) LOUISA MARION DO Nov 02, 2020 09:03
--- NOTE | 2020-11-02 09:46 | PRM.DC ---
DISCHARGE SUMMARY Y ADMIT DATE: 10/31/2020 DISCHARGE DATE: 11/02/2020 ADMITTING DIAGNOSIS: SROM, labor, @ 40.0 weeks, excessive weight gain during course, obesity DISCHARGE DIAGNOSIS: Same, status post , intrapartum infection, postprocedural anemia HOSPITAL COURSE: Labor complicated by intrapartum infection. Antibiotic course started during labor. with terminal thick meconium stained fluid noted. Antibiotics were continued for 24 hours postdelivery. Leukocytosis present but improved throughout the hospital course. Patient remained afebrile postdelivery. course uncomplicated PROCEDURES & DATES: 10/31/2020 COMPLICATIONS: Intrapartum infection MEDICATIONS: Motrin, iron and Colace DISPOSITION: Stable for discharge home ASSESSMENT & PLAN: A/ 25 y/o @ 40.0 s/p , PPD # 2 Intrapartum infection s/p 48 hr abx Excessive weight gain GBS neg Leukocytosis-improving Bottle feeding Anemia P/ Continue PP care Increase ambulation AM. CBC d/c to home Iron & Motrin Rx 2 week office f/u LOUISA MARION DO Nov 02, 2020 09:46
[2020-11-02] MEDS ORDERED: FERR325T15 PO (09:49)
[2020-11-02] MEDS ORDERED: DOCU-123 PO (09:49)
[2020-11-02 11:50] VITALS: BP 107/61
[2020-11-02] MEDS ORDERED: MOTRIN ONE (19:19)
[2020-11-02] MEDS ORDERED: TUCKS ONE (19:20)
[2020-11-02] MEDS ORDERED: COLACE PO ONE (19:20)
[2020-11-02] MEDS ORDERED: DERMOPLAST SPRAY TP ONE (19:20)
[2020-11-02] MEDS: COLACE PO SCH (19:29)
[2020-11-02] MEDS: MOTRIN PO PRN (19:30)
== END 2020-11-02 20:35 | disposition home or self-care (01) | DRG 560 ==
LOC: OBSVTOIN 07:31 → ATP 07:31 → LND 08:45
PROVIDERS: ADMIT Obstetrics & Gynecology; ATTEND Obstetrics & Gynecology
PROC: 10E0XZZ Delivery of Products of Conception, External Approach (ICD-10-PCS; principal; 2020-10-31)
PROC: 0HQ9XZZ Repair Perineum Skin, External Approach (ICD-10-PCS; 2020-10-31)
PROC: 3E0R3BZ Introduction of Anesthetic Agent into Spinal Canal, Percutaneous Approach (ICD-10-PCS; 2020-10-31)
PROC: 00HU33Z Insertion of Infusion Device into Spinal Canal, Percutaneous Approach (ICD-10-PCS; 2020-10-31)
DX: O77.0 Labor and delivery complicated by meconium in amniotic fluid (principal); O75.3 Other infection during labor; O99.214 Obesity complicating childbirth; D72.829 Elevated white blood cell count, unspecified; O99.12 Other diseases of the blood and blood-forming organs and certain disorders involving the immune mechanism complicating childbirth; E66.01 Morbid (severe) obesity due to excess calories; O75.2 Pyrexia during labor, not elsewhere classified; O70.0 First degree perineal laceration during delivery; O90.81 Anemia of the puerperium; D64.9 Anemia, unspecified; Z37.0 Single live birth; Z3A.40 40 weeks gestation of pregnancy
CPT/HCPCS: 36415; 59610; 84112; 85025; 86318; 86592; 86900; 87340; 96374; 96375; G0378; J0290; J0690; J1580; J2001; J2175; J2405; J2550; J7050; J7120